=== PATIENT | male | born 1960 | race African-American/Black ===

== ENCOUNTER 2018-07-31 23:09 | Emergency (ER) | payer SELFPAY ==
[2018-07-31 23:11] VITALS: BP 130/80
--- NOTE | 2018-07-31 23:28 | NUR ---
BESSY LOPEZ FOR ETOH INTOXICATION. PT WAS MASTURBATING BEHIND A JUDAISM WHEN [employer] ARRIVED. PT BLOOD ALCOHOL LEVEL TO ELEVATED TO GO TO [facility] SO JESSICA WAS CALLED TO BRING PT TO HOSPITAL. PT NONCOMPLIANT WITH ANSWERING QUESTIONS. PTS CLOTHES WET WITH URINE. PT OPENS EYES AND SMILES WHEN ASKED QUESTIONS.
--- NOTE | 2018-08-01 00:17 | NUR ---
TASK RN: PT SITTING IN GURNEY W/ EYES CLOSED; EVEN/REGULAR RESPIRATIONS NOTED. PT ARROUSABLE TO VOICE AND LIGHT PHYSICAL STIM THEN RETURNS QUICKLY TO SLEEP. PT ANSWERS QUESTIONS WITH HEAD NOD WHILE AWAKE, MOSTLY NON-VERBAL. SPO2 >90% ON RA.
--- NOTE | 2018-08-01 00:38 | NUR ---
TASK RN: PT ARROUSABLE AND ANSWERING QUESTIONS WITH HEAD NODS. PT GESTERS THAT HE STAYS AT [facility]. PT AMBULATORY WO ASSISSTANCE. PT TRANSFERED SELF TO WHEELCHAIR. DC EDUCATION PROVIDED. PT AND ALL BELONGINGS TO D WITH RN AND TECH. [facility] PROVIDED FOR [facility]AFE TRANSPORT. [facility] CALLED. TECH ASSISTED PT TO [facility]
== END 2018-08-01 00:41 | disposition home or self-care (01) ==
LOC: ED 08-01 00:27
DX: F10.120 Alcohol abuse with intoxication, uncomplicated (principal)
CPT/HCPCS: 99283